=== PATIENT | female | born 1980 | race Caucasian/White ===

== ENCOUNTER 2021-05-29 00:20 | Emergency (ER) | payer OTHER ==
[2021-05-29 00:46] VITALS: TEMP 97.7; BMI 29.0
[2021-05-29] MEDS ORDERED: KETOROLAC TROMETHAMINE 15 MG/ML VIAL IM ONE (01:14)
[2021-05-29] MEDS ORDERED: KETOROLAC TROMETHAMINE 30 MG/1 ML VIAL IM ONE (01:15)
[2021-05-29] MEDS ORDERED: METHOCARBAMOL 500 MG TABLET PO ONE (01:15)
[2021-05-29] MEDS ORDERED: ACETAMINOPHEN 500 MG TABLET (FP) PO ONE (01:15)
[2021-05-29] MEDS ORDERED: ACETAMINOPHEN 325 MG TABLET (FP) ONE (01:19)
[2021-05-29] MEDS ORDERED: KETOROLAC TROMETHAMINE 30 MG/1 ML VIAL ONE (01:19)
[2021-05-29] MEDS ORDERED: METHOCARBAMOL 500 MG TABLET ONE (01:19)
[2021-05-29] MEDS ORDERED: LIDOCAINE 5% TOPICAL PATCH TP ONE (02:08)
[2021-05-29] MEDS ORDERED: LIDOCAINE 5% TOPICAL PATCH ONE (02:11)
[2021-05-29] MEDS ORDERED: oxyCODONE HCL 5 MG TABLET PO ONE (03:42)
[2021-05-29] MEDS ORDERED: oxyCODONE HCL 5 MG TABLET ONE (03:46)
[2021-05-29 06:08] VITALS: BP 114/64; PULSE 86
[2021-05-29] MEDS ORDERED: LIDOCAINE PATCH REMOVAL MC ONE (15:00)
== END 2021-05-29 06:07 | disposition home or self-care (01) ==
LOC: JER 00:20
PROC: 3E023GC Introduction of Other Therapeutic Substance into Muscle, Percutaneous Approach (ICD-10-PCS; principal; 2021-05-29)
DX: M54.5 Low back pain (principal)
CPT/HCPCS: 72100-TC-FY; 96372; 99284-25